=== PATIENT | male | born 1960 | race Two or more races ===

== ENCOUNTER 2019-04-13 16:29 | Emergency (ER) | payer OTHER ==
[2019-04-13] MEDS ORDERED: ACETAMINOPHEN 325 MG TABLET PO ONE (17:05)
[2019-04-13] MEDS ORDERED: IBUPROFEN 600 MG TABLET PO ONE (17:05)
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
[2019-04-13 18:38] VITALS: BP 165/98
== END 2019-04-13 18:46 | disposition home or self-care (01) ==
LOC: ER 16:29
DX: M25.532 Pain in left wrist (principal); V43.52XA Car driver injured in collision with other type car in traffic accident, initial encounter; G89.29 Other chronic pain; M54.9 Dorsalgia, unspecified
CPT/HCPCS: 99283; 73110; L3908